=== PATIENT | male | born 1940 | race Caucasian/White ===

== ENCOUNTER 2016-10-26 07:46 | Outpatient (CLI) | payer MEDICARE ==
[2016-10-26 08:13] LABS: #Basophils 0.1 thou/uL (0.0-0.2); #Eosinphils 0.1 thou/uL (0.0-0.7); #Lymphocytes 1.3 thou/uL (1.20-3.40); #Monocytes 0.6 thou/uL (0.11-0.59); #Neutrophils 4.3 thou/uL (1.40-6.50); %Eosinophils 1.5 % (0.0-10.0); %Lymphocytes 20.6 % (21.0-51.0); %Monocytes 9.4 % (0.0-10.0); %Neutrophils 67.6 % (42.0-75.0); Hemoglobin 15.6 g/dL (14.0-18.0); Mean Corpuscular HGB CONC 33.8 g/dL (32.0-36.0); Mean Corpuscular Hemoglobin 29.5 pg (27.0-31.0); Mean Corpuscular Volume 87.3 fl (80.0-94.0); Mean Platelet Volume 8.5 fL (7.4-10.4); Platelet Count 203 thou/uL (130-400); RBC Distribution Width 11.5 % (11.5-14.5); Red Blood Cell (RBC) Count 5.31 mill/uL (4.70-6.10); White Blood Cell (WBC) Count 6.3 thou/uL (4.8-10.8)
[2016-10-26 08:34] LABS: ALT (SGPT) 16 U/L (0-55); AST (SGOT) 13 U/L (5-34); Albumin 4.2 g/dL (3.4-4.8); Alkaline Phosphatase 98 U/L (40-150); Anion Gap 15 mmol/L (10-20); BUN (Urea Nitrogen) 13 mg/dL (8.4-25.7); Bilirubin, Total 1.1 mg/dL (0.2-1.2); Calc. Creatinine Clearance 0 mL/min (70-130); Calcium 9.8 mg/dL (7.8-10.44); Carbon Dioxide 21 mmol/L (23-31); Cardiac Risk 2.9 (Less than 4.5); Chloride 104 mmol/L (98-107); Cholesterol 122 mg/dL (< 200 Desired); Estimated GFR-MDRD 87; Globulin 2.6 g/dL (2.4-3.5); Glucose 116 mg/dL (83-110); HDL Cholesterol 42 mg/dL (>60 Neg Risk); LDL Cholesterol, Calculated 58 mg/dL; Potassium 4.1 mmol/L (3.5-5.1); Protein, Total 6.8 g/dL (5.8-8.1); Sodium 136 mmol/L (136-145); Triglycerides 112 mg/dL (Less than 150)
== END 2016-10-26 07:47 ==
LOC: MADLABBHPM 07:46
PROVIDERS: ATTEND Family Medicine
DX: E78.5 Hyperlipidemia, unspecified (principal); I48.91 Unspecified atrial fibrillation; I10 Essential (primary) hypertension
CPT/HCPCS: 36415; 80053; 80061; 84443; 85025

== ENCOUNTER 2017-01-24 07:36 | Outpatient (CLI) | payer MEDICARE ==
[2017-01-24 08:24] LABS: #Basophils 0.1 thou/uL (0.0-0.2); #Eosinphils 0.1 thou/uL (0.0-0.7); #Lymphocytes 1.3 thou/uL (1.20-3.40); #Monocytes 0.4 thou/uL (0.11-0.59); #Neutrophils 2.8 thou/uL (1.40-6.50); %Basophils 1.3 % (0.0-1.0); %Eosinophils 2.7 % (0.0-10.0); %Lymphocytes 28.1 % (21.0-51.0); %Monocytes 8.6 % (0.0-10.0); %Neutrophils 59.3 % (42.0-75.0); Hemoglobin 14.5 g/dL (14.0-18.0); Mean Corpuscular HGB CONC 33.2 g/dL (32.0-36.0); Mean Corpuscular Hemoglobin 29.1 pg (27.0-31.0); Mean Corpuscular Volume 87.5 fl (80.0-94.0); Platelet Count 194 thou/uL (130-400); RBC Distribution Width 12.1 % (11.5-14.5); White Blood Cell (WBC) Count 4.7 thou/uL (4.8-10.8)
[2017-01-24 08:31] LABS: ALT (SGPT) 29 U/L (8-55); AST (SGOT) 19 U/L (5-34); Albumin 3.8 g/dL (3.4-4.8); Alkaline Phosphatase 88 U/L (40-150); Anion Gap 18 mmol/L (10-20); BUN (Urea Nitrogen) 11 mg/dL (8.4-25.7); Bilirubin, Direct 0.3 mg/dL (0.1-0.3); Bilirubin, Total 0.7 mg/dL (0.2-1.2); Calc. Creatinine Clearance 0 mL/min (70-130); Calcium 9.1 mg/dL (7.8-10.44); Carbon Dioxide 20 mmol/L (23-31); Cardiac Risk 2.8 (Less than 4.5); Chloride 106 mmol/L (98-107); Cholesterol 127 mg/dl (< 200 Desired); Estimated GFR-MDRD Greater than 90; Glucose 93 mg/dL (83-110); HDL Cholesterol 45 mg/dL (>60 Neg Risk); LDL Cholesterol, Calculated 63 mg/dL; Potassium 4.2 mmol/L (3.5-5.1); Protein, Total 6.6 g/dL (5.8-8.1); Sodium 140 mmol/L (136-145); Triglycerides 93 mg/dL (Less than 150)
== END 2017-01-24 07:37 ==
LOC: MADLABBHPM 07:36
PROVIDERS: ATTEND Family Medicine
DX: E78.5 Hyperlipidemia, unspecified (principal); R60.9 Edema, unspecified; I25.10 Atherosclerotic heart disease of native coronary artery without angina pectoris
CPT/HCPCS: 36415; 80048; 80061; 80076; 85025

== ENCOUNTER 2017-11-15 09:46 | Emergency (ER) | payer MEDICARE ==
[2017-11-15 10:28] LABS: Hemoglobin 13.7 g/dL (14.0-18.0); Mean Corpuscular HGB CONC 34.8 g/dL (32.0-36.0); Mean Corpuscular Hemoglobin 29.5 pg (27.0-31.0); Mean Corpuscular Volume 84.8 fl (80.0-94.0); Mean Platelet Volume 7.2 fL (7.4-10.4); Platelet Count 201 thou/uL (130-400); RBC Distribution Width 12.4 % (11.5-14.5); Red Blood Cell (RBC) Count 4.65 mill/uL (4.70-6.10); White Blood Cell (WBC) Count 5.6 thou/uL (4.8-10.8)
[2017-11-15 10:29] LABS: Anisocytosis SLIGHT = 6-15 cells (100X) (0-5/hpf); Band 2 % (5-11); Lymphocytes 27 % (21-51); MDiff Complete? YES; Manual Diff?? YES; Monocytes 9 % (0-10); Neutrophil 60 % (42-75); PTT 28.7 SEC (22.9-36.1); Prothrombin Time 13.7 SEC (12.0-14.7)
[2017-11-15 10:30] LABS: PLT Morphology Comment Appears Adequate
[2017-11-15 10:34] LABS: ALT (SGPT) 14 U/L (8-55); AST (SGOT) 11 U/L (5-34); Albumin 3.8 g/dL (3.4-4.8); Alkaline Phosphatase 64 U/L (40-150); Anion Gap 17 mmol/L (10-20); BUN (Urea Nitrogen) 12 mg/dL (8.4-25.7); Bilirubin, Total 0.8 mg/dL (0.2-1.2); CK (CPK) 41 U/L (30-200); Calc. Creatinine Clearance 0 mL/min (70-130); Calcium 9.3 mg/dL (7.8-10.44); Carbon Dioxide 21 mmol/L (23-31); Chloride 103 mmol/L (98-107); Estimated GFR-MDRD Greater than 90; Globulin 2.5 g/dL (2.4-3.5); Glucose 104 mg/dL (83-110); Potassium 4.4 mmol/L (3.5-5.1); Protein, Total 6.3 g/dL (5.8-8.1); Sodium 137 mmol/L (136-145)
[2017-11-15 10:36] LABS: CKMB 0.9 ng/mL (0-6.6); Troponin I Less than 0.010 ng/mL (< 0.028)
--- NOTE | 2017-11-15 11:33 | RAD ---
CHEST ONE VIEW: Comparison: 11-23-13 History: Tachycardia. FINDINGS: Enlarged cardiac silhouette. Atherosclerosis of the aorta. Pulmonary vessels are normal. Chronic peter ge in the lung bases is suspected. Stable pleural based density in the left hemithorax. Limited evalu ation of the left lung base due to motion. Left lower lobe atelectasis or infiltrate cannot be exclud ed. No pneumothorax or osseous abnormality. IMPRESSION: Limited evaluation left lung base due to motion. Better interrogation with two views chest radiograph . POS: OFF
== END 2017-11-15 12:30 | disposition short-term general hospital (02) ==
LOC: MADERS 09:46
DX: I48.92 Unspecified atrial flutter (principal); E78.5 Hyperlipidemia, unspecified; I10 Essential (primary) hypertension; Z79.899 Other long term (current) drug therapy
CPT/HCPCS: 71045; 80053; 82553; 83880; 84484; 85025; 85610; 85730; 93005; 96374; 96376

== ENCOUNTER 2020-09-03 12:47 | Outpatient (CLI) | payer MEDICARE ==
--- NOTE | 2020-09-03 15:28 | RAD ---
PA AND LATERAL CHEST: 09/03/20 HISTORY: Cough and bronchitis. COMPARISON: 11/18/17 exam. Heart size is within normal limits. There are atherosclerotic changes of the aorta. Some chronic appe aring lung changes. There is flattening to the hemidiaphragms. The bones are demineralized. IMPRESSION: Chronic lung change. POS: [facility]
== END 2020-09-03 12:48 | disposition home or self-care (01) ==
LOC: MADRAD 12:47
PROVIDERS: ATTEND Family Medicine
DX: J40 Bronchitis, not specified as acute or chronic (principal)
CPT/HCPCS: 71046

== ENCOUNTER 2022-01-07 10:59 | Outpatient (CLI) | payer MEDICARE ==
[2022-01-07 11:32] LABS: #Basophils 0.1 thou/uL (0.0-0.2); #Eosinphils 0.1 thou/uL (0.0-0.7); #Lymphocytes 1.2 thou/uL (1.20-3.40); #Monocytes 0.5 thou/uL (0.11-0.59); #Neutrophils 2.4 thou/uL (1.40-6.50); %Basophils 1.8 % (0.0-1.0); %Lymphocytes 27.4 % (21.0-51.0); %Monocytes 11.1 % (0.0-10.0); %Neutrophils 57.7 % (42.0-75.0); Hemoglobin 13.5 g/dL (14.0-18.0); Mean Corpuscular HGB CONC 32.2 g/dL (32.0-36.0); Mean Corpuscular Hemoglobin 27.4 pg (27.0-31.0); Mean Corpuscular Volume 85.2 fL (78.0-98.0); Mean Platelet Volume 10.5 fL (7.4-10.4); Platelet Count 187 thou/uL (130-400); RBC Distribution Width 12.6 % (11.5-14.5); Red Blood Cell (RBC) Count 4.92 mill/uL (4.70-6.10); White Blood Cell (WBC) Count 4.2 thou/uL (4.8-10.8)
[2022-01-07 11:46] LABS: ALT (SGPT) 19 U/L (8-55); AST (SGOT) 17 U/L (5-34); Albumin 3.9 g/dL (3.4-4.8); Alkaline Phosphatase 75 U/L (40-110); Anion Gap 14 mmol/L (10-20); BUN (Urea Nitrogen) 9 mg/dL (8.4-25.7); Bilirubin, Total 0.8 mg/dL (0.2-1.2); Calc. Creatinine Clearance 0 mL/min (70-130); Calcium 9.5 mg/dL (7.8-10.44); Carbon Dioxide 23 mmol/L (23-31); Cardiac Risk 2.4 (Less than 4.5); Chloride 107 mmol/L (98-107); Cholesterol 122 mg/dl (< 200 Desired); Globulin 2.4 g/dL (2.4-3.5); Glucose 103 mg/dL (83-110); HDL Cholesterol 50 mg/dL (>60 Neg Risk); LDL Cholesterol, Calculated 58 mg/dL; Potassium 4.1 mmol/L (3.5-5.1); Protein, Total 6.3 g/dL (5.8-8.1); Sodium 140 mmol/L (136-145); Triglycerides 70 mg/dL (Less than 150)
== END 2022-01-07 11:00 | disposition home or self-care (01) ==
LOC: MADLAB 10:59
PROVIDERS: ATTEND Family Medicine
DX: E78.5 Hyperlipidemia, unspecified (principal)
CPT/HCPCS: 36415; 80053; 80061; 85025